=== PATIENT | female | born 1945 | race Caucasian/White ===

== ENCOUNTER → 2017-01-24 | Outpatient (CLI) | payer MEDICARE, BC ==
[~2017-01-24] MED LIST: LORTAB 7.5-5001 TAB PO; PROPRANOLOL PO
--- NOTE | ~2017-01-24 | MY11 ---
[facility] A Service of [facility] RADIOLOGY TEXT RESULTS PATIENT: CAROLYN DODGE LOCATION: [facility] : 45 UNIT #: [id number] AGE: [address]: Pepe Mantilla MD SEX: F ORDER DR: [id number] [facility]. [place], [place] [address] [id number] O MR#: [id number] Acc #: [id number] NAME: CAROLYN DODGE : 1945 SEX: F STUDY DATE/TIME: 01/24/2017 9:03 UNIT: [facility] ROOM: STUDY DESCRIPTION: MY Mammogram Screening Dig Moe Attending Physician: Pepe Mantilla Jr., M.D. Referring Physician: Pepe Mantilla Jr., M.D. Ordering Physician: Pepe Mantilla Jr., M.D. Primary Care Physician: Pepe Mantilla Jr., M.D. MEDICAL IMAGING REPORT This report is preliminary unless electronic signature is present EXAM Bilateral Digital Screening Mammogram with CAD INDICATION Breast cancer screening. 71-year-old asymptomatic female who reports a grandmother and aunts with breast cancer. COMPARISON March 29, 2016 June 02, 2014 May 26, 2013 January 17, 2012 October 04, 2010 September 11, 2007 FINDINGS The breast tissue is heterogeneously dense, which could obscure detection of small masses. No suspicious findings are seen. IMPRESSION No mammographic evidence of malignancy. Annual screening mammography and clinical breast exam are recommended. A result letter will be sent to the patient. Patients over the age of 40 are entered into a reminder system with target due date for the next mammogram. BIRADS: 1 Negative Dictated by... Nathan Harp M.D. THIS IS AN ELECTRONICALLY VERIFIED REPORT Nathan Harp M.D. at 01/26/2017 4:15 PM [facility]ES[facility] A Service of [facility] RADIOLOGY TEXT RESULTS PATIENT: CAROLYN DODGE LOCATION: [facility] : 45 UNIT #: [id number] AGE: [address]: Pepe Mantilla MD SEX: F ORDER DR: TD: 01/24/2017 10:10 JOB #: [id number] MEDICAL IMAGING REPORT Page 1 of 1 COPY
--- NOTE | ~2017-01-24 | BD1 ---
[facility] A Service of [facility] RADIOLOGY TEXT RESULTS PATIENT: CAROLYN DODGE LOCATION: [facility] : 45 UNIT #: [id number] AGE: [address]: Pepe Mantilla MD SEX: F ORDER DR: [id number] [facility] [address] [place], [place] [address] [id number] O MR#: [id number] Acc #: [id number] NAME: CAROLYN DODGE : 1945 SEX: F STUDY DATE/TIME: 01/24/2017 9:04 UNIT: [facility] ROOM: STUDY DESCRIPTION: BD Dexa Bone Dens 1+ Site Attending Physician: Pepe Mantilla Jr., M.D. Referring Physician: Pepe Mantilla Jr., M.D. Ordering Physician: Pepe Mantilla Jr., M.D. Primary Care Physician: Pepe Mantilla Jr., M.D. MEDICAL IMAGING REPORT This report is preliminary unless electronic signature is present EXAM DXA scan 01/24/2017 HISTORY Status post menopause with history of hormone replacement therapy. Hysterectomy at age 42 with removal of both ovaries. Family history of breast carcinoma in grandmother. FINDINGS Bone mineral density in the lumbar spine from L1 through L4 is 1.015 g/cm2 which is 0.3 standard deviations below the mean when compared to the young adult reference population which is within the range of normal. This is 1.9 standard deviations above the mean when compared to the age-matched population. Compared with 05/26/2013, there has been an increase in bone mineral density in the lumbar spine of 3%. Bone mineral density in the left femoral neck was 0.656 g/cm2 which is 1.7 standard deviations below the mean when compared to the young adult reference population which is characteristic of osteopenia. This is 0.2 standard deviations above the mean when compared to the age-matched population. Compared with 05/26/2013, there has been an increase in bone mineral density in the left hip of 5%. IMPRESSION Bone mineral density in the lumbar spine within the range of normal and within the left hip characteristic of osteopenia. Compared with 05/26/2013, there has been an increase in bone mineral density in the lumbar spine and the left hip. Dictated by... Faraz Garcia M.D. [facility] A Service of [facility] RADIOLOGY TEXT RESULTS PATIENT: CAROLYN DODGE LOCATION: [facility] #: [id number] : 45 UNIT #: [id number] AGE: [address]: Pepe Mantilla MD SEX: F ORDER DR: THIS IS AN ELECTRONICALLY VERIFIED REPORT Faraz Garcia M.D. at 01/25/2017 8:29 AM OLU/rashad TD: 01/24/2017 10:14 JOB #: [id number] MEDICAL IMAGING REPORT Page 1 of 1 COPY
== END | disposition home or self-care (01) ==
LOC: CWCC 08:45
DX: Z12.31 Encounter for screening mammogram for malignant neoplasm of breast (principal); Z80.3 Family history of malignant neoplasm of breast; M85.88 Other specified disorders of bone density and structure, other site; Z78.0 Asymptomatic menopausal state; M85.9 Disorder of bone density and structure, unspecified
CPT/HCPCS: 77080; G0202